=== PATIENT | female | born 1995 | race Caucasian/White ===

== ENCOUNTER 2019-04-12 21:58 | Emergency (ER) | payer OTHER ==
[~2019-04-12] VITALS: Ht 167.6 cm; Wt 72.6 kg
== END 2019-04-13 03:04 | disposition home or self-care (01) ==
LOC: ED 21:58
DX: N99.820 Postprocedural hemorrhage of a genitourinary system organ or structure following a genitourinary system procedure (principal); Z88.2 Allergy status to sulfonamides
CPT/HCPCS: 85025; 86850; 86900; 86901; 96361; 96374; 96375; 99284-25; J1170; J2405; J7030

== ENCOUNTER 2022-11-09 23:44 | Inpatient (IN) | payer BC ==
[2022-11-10 00:39] LABS: BASOPHILS 1.2 % (0-2); EOSINOPHILS 1.7 % (0-6); HEMATOCRIT 34.4 % (35.0-50.0); HEMOGLOBIN 11.6 g/dL (12.0-18.0); MCHC 33.6 g/dl (30-36); MCV 89.3 fl (81-99); NEUTROPHILS 60.1 % (39-80); PLATELET COUNT 151 K/uL (140-440); RBC 3.85 M/ul (4.3-5.7); RDW 12.7 (10.5-15.0)
[2022-11-10 00:51] LABS: CREATININE, RANDOM URINE 48.55 mg/dL (NOT ESTABLISHED)
[2022-11-10 00:53] LABS: PROTEIN/CREATININE RATIO 5.74 mg/mg (0.010-0.107)
[2022-11-10 00:58] LABS: ALBUMIN/GLOBULIN RATIO 0.56 (1.1-2.4); ANION GAP 14.9 (7-21); BILIRUBIN, TOTAL 0.2 ng/dL (0.2-1.0); BUN/CREATININE RATIO 23.18 (6.0-28.6); CALCIUM 9.2 mg/dL (8.5-10.1); CREATININE, SERUM 0.69 mg/dL (0.55-1.02); POTASSIUM 3.9 mmol/L (3.5-5.1); PROTEIN, TOTAL 5.6 g/dL (6.4-8.2)
[2022-11-10 03:26] LABS: EOSINOPHILS 1.6 % (0-6); HEMATOCRIT 35.3 % (35.0-50.0); HEMOGLOBIN 11.7 g/dL (12.0-18.0); LYMPHOCYTES 32.1 % (24-44); MCH 29.7 (27-36); MCHC 33.2 g/dl (30-36); MCV 89.3 fl (81-99); MONOCYTES 7.6 % (0-12); NEUTROPHILS 57.7 % (39-80); PLATELET COUNT 194 K/uL (140-440); RBC 3.95 M/ul (4.3-5.7); RDW 13.2 (10.5-15.0)
[2022-11-10 03:28] VITALS: BP 149/100
[2022-11-10 03:57] LABS: ABO A; ANTIBODY SCREEN NEGATIVE; RH POSITIVE
[2022-11-10 04:00] LABS: INFLUENZA B NAA NEGATIVE (NEGATIVE); RESPIRATORY SYNCYTIAL VIR NAA NEGATIVE (NEGATIVE)
== END 2022-11-10 04:51 | disposition short-term general hospital (02) | DRG 833 ==
LOC: FBCO → FBC 11-10 02:29
PROVIDERS: ADMIT Obstetrics & Gynecology; ATTEND Obstetrics & Gynecology
DX: O14.10 Severe pre-eclampsia, unspecified trimester (principal); Z3A.34 34 weeks gestation of pregnancy; Z88.2 Allergy status to sulfonamides; Z20.822 Contact with and (suspected) exposure to COVID-19; O35.DXX0 Maternal care for other (suspected) fetal abnormality and damage, fetal gastrointestinal anomalies, not applicable or unspecified
CPT/HCPCS: 36415; 59025; 80053; 82565; 82570; 83615; 84156; 84550; 85025; 85027; 86850; 86900; 86901; 87502; 96374; C9803; G0463; J0702; J3475; J7121; U0002

== ENCOUNTER 2024-06-07 21:38 | Inpatient (IN) | payer BC ==
[~2024-06-07] VITALS: Ht 166.4 cm; Wt 106.6 kg
--- NOTE | ~2024-06-07 | OR ---
[facility] [address] [place], [place] [address] Draft DATE OF OPERATION: 06/08/2024 SURGEON: Neville Frederick DO PREOPERATIVE DIAGNOSES: 1. Intrauterine at 37 weeks 5 days gestation. 2. Gestational hypertension. 3. History of prior section. 4. History of prior severe preeclampsia with severe features. POSTOPERATIVE DIAGNOSES: 1. Intrauterine at 37 weeks 5 days gestation. 2. Gestational hypertension. 3. History of prior section. 4. History of prior severe preeclampsia with severe features. 5. Pelvic adhesions. PROCEDURES PERFORMED: 1. Repeat low transverse section. 2. Lysis of adhesions. ANESTHESIA: Spinal with postoperative TAP blocks. BLOOD LOSS: 425 mL. COMPLICATIONS: None. DRAINS: Montoya to gravity. FINDINGS: Delivery of viable female , 7 pounds 8 ounces with Apgars of 9 and 9. Clear amniotic fluid. No nuchal. Dense adhesions of the peritoneum to the anterior surface of the uterus as well as omental adhesions to the peritoneum. Lysis of adhesions was successful with no residual adhesions at the end of the case. INDICATIONS: PATIENT NAME: KEYA STOUT OPERATIVE REPORT DATE OF : [birth year] REPORT #: [id number] PHYSICIAN: NEVILLE FREDERICK) PCP: TITA MOREL PAC REPORT IS CONFIDENTIAL AND NOT TO BE RELEASED WITHOUT AUTHORIZATION [facility] [address] [facility] [place], [place] [address] Draft Ms. Moore is a very pleasant 29-year-old G2, P0-1-0-1 with IUP at 37 weeks 5 days gestation who presents with gestational hypertension. She had severe preeclampsia with primary at 34 weeks with her first and we have been watching her blood pressures very closely. Two episodes of new onset elevated blood pressures noted in the last week and decision was made to proceed with delivery per ACOG guidelines. Risks, benefits, and alternatives were discussed in detail with the patient. The patient understands and wished to proceed with the procedure. DESCRIPTION OF PROCEDURE: The patient was taken the OR. A time-out was performed to confirm correct patient, correct procedure. Spinal anesthesia was adequately established. The patient was prepped and draped in the supine position with a bump under the right hip. Montoya catheter was inserted. Once the patient was prepped and draped then neuraxial anesthesia was noted to be adequate. A Pfannenstiel skin incision was made through the prior scar and carried down to the fascia. The fascia was nicked in the midline and fascial incision was extended bilaterally using curved Elias scissors. Fascia was grasped with Don's, elevated, and the underlying rectus dissected off bluntly and sharply. The rectus was divided bluntly in the midline and the peritoneum was entered bluntly. Dense peritoneal adhesions to the anterior surface of the uterus were identified. Careful dissection of the rectus was then performed in order to facilitate better visualization of the peritoneal/uterine adhesions. Once good visualization was assured, the peritoneal adhesions were taken down bluntly and sharply with Metzenbaum scissors, freeing the peritoneal surface from the uterus. At this point, an Frank self retractor was placed. Lower uterine segment was identified and hysterotomy performed using a surgical scalpel. Clear amniotic fluid was noted. Hysterotomy was extended bilaterally using blunt dissection. The was then delivered with the assistance of fundal pressure in the LOT position with no nuchal cord. was vigorous and cried. Delayed cord clamping x2 minutes was observed. Cord was doubly clamped and cut. The handed to the waiting pediatric team for further care. Cord blood was obtained for routine analysis. The placenta was expressed, intact with a centrally inserted three-vessel cord. Pitocin was administered per protocol and bleeding was minimal. The uterine cavity was cleared of any remaining products of conception or clot and the hysterotomy was repaired in two layers of 0 Monocryl. The first being a running locked layer with the second layer being an imbricating suture in the vertical manner. Small amount of oozing was noted just left of the midline and this made hemostatic with a figure of eight. The pelvis was irrigated and found to be hemostatic. Normal uterus, tubes, and ovaries were appreciated. Omental adhesion was noted to the peritoneum and this was divided and ligated with excellent hemostasis appreciated. The peritoneum was then reapproximated using 2-0 Vicryl in a running nonlocked manner. Rectus was made hemostatic with judicious use of Bovie electrocautery and the rectus was loosely plicated in the midline using three interrupted sutures of 0 Vicryl. Fascia was reapproximated using 0 Vicryl PATIENT NAME: KEYA STOUT OPERATIVE REPORT DATE OF : [birth year] REPORT #: [id number] PHYSICIAN: NEVILLE FREDERICK) PCP: TITA MOREL PAC REPORT IS CONFIDENTIAL AND NOT TO BE RELEASED WITHOUT AUTHORIZATION [address] [address] Draft in a running nonlocked manner. Subcu was made hemostatic with judicious use of Bovie electrocautery and was reapproximated using 3-0 Vicryl in a running nonlocked manner. Skin was reapproximated using surgical alex. The uterus was Crede'd for scant amount of blood. The patient remained in the OR for postoperative TAP block per Anesthesia. Sponge, needle and instrument count were correct x2 at the end of procedure. DO JOSE ANTONIO Wilson/MCKAY /[id number] Copies: ~ PATIENT NAME: KEYA STOUT OPERATIVE REPORT DATE OF : [birth year] REPORT #: [id number] PHYSICIAN: NEVILLE FREDERICK DO (JD) PCP: TITA MOREL PAC REPORT IS CONFIDENTIAL AND NOT TO BE RELEASED WITHOUT AUTHORIZATION
[2024-06-07] MEDS ORDERED: SOD+POT BICARB/CITRIC ACID 2 EA TABLET.EFF PO ONE (23:00)
[2024-06-07] MEDS ORDERED: LACTATED RINGER'S 1,000 ML IV PRN (23:00)
[2024-06-07 23:20] LABS: HEMATOCRIT 33.5 % (35.0-50.0); HEMOGLOBIN 11.7 g/dL (12.0-18.0); MCH 29.2 (27-36); MCHC 34.9 g/dl (30-36); MCV 83.5 fl (81-99); RBC 4.02 M/ul (4.3-5.7); RDW 13.2 (10.5-15.0)
[2024-06-07 23:21] LABS: AMPHETAMINES, URINE NEGATIVE (NEGATIVE); BARBITURATES, URINE NEGATIVE (NEGATIVE); BENZODIAZEPINE, URINE NEGATIVE (NEGATIVE); BUPRENORPHINE, URINE NEGATIVE (NEGATIVE); CANNABINOID, URINE NEGATIVE (NEGATIVE); COCAINE, URINE NEGATIVE (NEGATIVE); CREATININE, RANDOM URINE 193.61 mg/dL (NOT ESTABLISHED); ECSTASY, URINE NEGATIVE (NEGATIVE); FENTANYL, URINE NEGATIVE (NEGATIVE); METHADONE, URINE NEGATIVE (NEGATIVE); OPIATES, URINE NEGATIVE (NEGATIVE); OXYCODONE, URINE NEGATIVE (NEGATIVE); PHENCYCLIDINE, URINE NEGATIVE (NEGATIVE); PROTEIN/CREATININE RATIO 0.25 mg/mg (0.010-0.107)
[2024-06-07] MEDS ORDERED: CALCIUM CARBONATE 500 MG CHEW PO PRN (23:30)
[2024-06-07 23:37] LABS: ALBUMIN 2.5 g/dL (3.4-5.0); ALBUMIN/GLOBULIN RATIO 0.63 (1.1-2.4); ANION GAP 16.1 (7-21); BILIRUBIN, TOTAL 0.3 mg/dL (0.2-1.0); CALCIUM 8.5 mg/dL (8.5-10.1); CREATININE, SERUM 0.8 mg/dL (0.55-1.02); POTASSIUM 4.1 mmol/L (3.5-5.1); PROTEIN, TOTAL 6.5 g/dL (6.4-8.2)
[2024-06-07 23:44] VITALS: BP 134/76
[2024-06-07 23:56] LABS: ABO A; ANTIBODY SCREEN NEGATIVE; RH POSITIVE
[2024-06-08] MEDS ORDERED: SERTRALINE HCL100 MG PO (00:13)
[2024-06-08] MEDS ORDERED: LACTATED RINGER'S 1,000 ML IV SCH ×2 (05:00→09:25)
[2024-06-08] MEDS ORDERED: SOD+POT BICARB/CITRIC ACID 2 EA TABLET.EFF PO ONE (07:00)
[2024-06-08] MEDS ORDERED: CEFAZOLIN SODIUM 2 GM/20 ML SYR IV SCH (07:00)
[2024-06-08] MEDS ORDERED: OXYTOCIN 10 UNITS/ML VIAL ONE (07:07)
[2024-06-08] MEDS ORDERED: ondansetron HCL 4 MG/2 ML VIAL ONE (07:07)
[2024-06-08] MEDS ORDERED: DEXAMETHASONE SOD PHOS 4 MG/ML VIAL ONE ×2 (07:07→07:17)
[2024-06-08] MEDS ORDERED: PHENYLEPHRINE HCL 10 MG/ML VIAL ONE (07:07)
[2024-06-08] MEDS ORDERED: KETOROLAC TROMETHAMINE 30 MG/ML VIAL ONE (07:07)
[2024-06-08] MEDS ORDERED: ePHEDrine sulfate 50 MG/ML AMP ONE (07:08)
[2024-06-08] MEDS ORDERED: SODIUM CHLORIDE 0.9% 80 ML IV ONE (07:08)
[2024-06-08] MEDS ORDERED: LIDOCAINE HCL 2% 5 ML SDV ONE (07:10)
[2024-06-08] MEDS ORDERED: BUPIVACAINE 0.75% IN DEXTROSE 2 ML AMP ONE (07:10)
[2024-06-08] MEDS ORDERED: fentaNYL citrate 100 MCG/2 ML VIAL ONE (07:10)
[2024-06-08] MEDS ORDERED: dexmedeTOMIDine HCl 200 MCG/2 ML VIAL ONE (07:17)
[2024-06-08] MEDS ORDERED: Ropivacaine HCl 0.5% 30 ML VIAL ONE (07:17)
[2024-06-08] MEDS ORDERED: NALOXONE HCL 0.4 MG SYR IV PRN ×2 (07:45→10:00)
[2024-06-08] MEDS ORDERED: ondansetron HCL 4 MG/2 ML VIAL IV PRN ×3 (07:45→10:00)
[2024-06-08] MEDS ORDERED: IBLOOD GLUCOSE TEST STRIP 1 EA TEST VI PRN (07:45)
[2024-06-08] MEDS ORDERED: fentaNYL citrate 50 MCG/ML SDV IV PRN (07:45)
[2024-06-08] MEDS ORDERED: diphenhydrAMINE HCL 50 MG/ML VIAL IV PRN ×2 (07:45→10:00)
[2024-06-08] MEDS ORDERED: OXYTOCIN/0.9 % SODIUM CHLORIDE 500 ML IV SCH (09:30)
[2024-06-08] MEDS ORDERED: HYDROCODONE/ACETA 5/325 TAB PO PRN (09:30)
[2024-06-08] MEDS ORDERED: PROMETHAZINE HCL 25 MG SUPP PR PRN (09:30)
[2024-06-08] MEDS ORDERED: METOCLOPRAMIDE HCL 10 MG/2 ML SDV IV PRN (09:30)
[2024-06-08] MEDS ORDERED: PROCHLORPERAZINE EDISYLATE 10 MG/2 ML VIAL IV PRN (09:30)
[2024-06-08] MEDS ORDERED: PROMETHAZINE HCL 25 MG TAB PO PRN (09:30)
[2024-06-08] MEDS ORDERED: bisacodyL 10 MG SUPP PR PRN (09:30)
[2024-06-08] MEDS ORDERED: OXYCODONE/APAP 5/325 TAB PO PRN (09:30)
[2024-06-08] MEDS ORDERED: KETOROLAC TROMETHAMINE 30 MG/ML VIAL IV PRN (10:00)
[2024-06-08] MEDS ORDERED: MORPHINE SULFATE 4 MG/ML VIAL IV PRN (10:00)
[2024-06-08] MEDS ORDERED: HYDROmorphone HCL 1 MG/ML SYR IV PRN (10:00)
--- NOTE | 2024-06-08 10:21 | NUR ---
06/08/24 1021 Corinne De Leon 0917- FUNDAL CHECK DONE IN THE OR. MINIMAL BLEEDING AFTER RECIEVING THE TAP BLOCKS. 0920- PT ARRIVES TO ROOM 104. BREATHING IS EVEN AND UNLABORED. PT DENIES PAIN AND NAUSEA. ALL MONITORS PUT IN PLACE. VSS. FUNDAL CHECK DONE, BLOOD CLOT NOTED AND SHOWN TO NOEMI GEORGES. LR IS INFUSING IN HER L ARM WITH PITOCIN. VSS. SPINAL CHECK DONE AND IS SITTING ABOVE THE NIPPLE LINE AT T3. DORSEY CATH IN PLACE AND DRAINING YELLOW CLEAR URINE. 0930- PT HOB INCREASED SLIGHTLY. BABY TO CHEST AND OFF AND ON. PT CONTINUES TO DENY PAIN AND NAUSEA. PT REPORTS FEELING "TINGLES" IN HER TOES BUT IS UNABLE TO MOVE HER BLE. VSS. FUNDAL CHECK COMPLETED. PT SHOWS NO SIGNS OF APPARENT DISTRESS. PT IS DROWSY BUT REACTIVE TO VERBAL STIMULI, CLOSING EYES OFF AND ON. 0954- PT BLOOD PRESSURES HAVE DECREASED TO UPPER 90S. PT REPORTS FEELING "HEAVY" EVERYWHERE. FAM FRIEND CALLED AND VERBAL ORDER FOR A 500 ML BOLUS OF LR RECIEVED. THAT IS PREPARED AND HOOKED UP TO PT ON STRAIGHT TUBING AND A PRESSURE BAG. PT DROWSY AND CLOSING EYES OFF AND ON. PT IS AT THE BEDSIDE. 1000- BLOOD PRESSURE INCREASED TO LOW 100S. BEDSIDE REPORT GIVEN TO NOEMI GEORGES. PT IS RESTING. BABY IS WITH [employer] SERVICES SPECIALIST. PT AT BEDSIDE. FUNDAL CHECK SHOWS MIDLINE AND JUST BELOW THE UMBILICUS. PT DENIES QUESTIONS OR CONCERNS. CARE TURNED OVER AT THIS TIME.
[2024-06-08 10:23] VITALS: BP 99/58
[2024-06-08] MEDS ORDERED: SIMETHICONE 80 MG CHEW PO SCH (11:00)
[2024-06-08] MEDS ORDERED: ENOXAPARIN SODIUM 40 MG/0.4 ML SYR SUB-Q SCH (12:00)
[2024-06-08] MEDS ORDERED: KETOROLAC TROMETHAMINE 30 MG/ML VIAL IV SCH (14:00)
[2024-06-08] MEDS ORDERED: SENNOSIDES/DOCUSATE 1 EA TAB PO SCH (21:00)
[2024-06-09] MEDS ORDERED: IBUPROFEN 600 MG TAB PO SCH (02:00)
[2024-06-09 06:19] LABS: HEMATOCRIT 28.1 % (35.0-50.0); HEMOGLOBIN 9.4 g/dL (12.0-18.0); MCH 28.3 (27-36); MCHC 33.5 g/dl (30-36); MCV 84.7 fl (81-99); RBC 3.32 M/ul (4.3-5.7); RDW 13.2 (10.5-15.0)
--- NOTE | 2024-06-09 07:38 | PR ---
[facility] [address] [facility] [place] [facility] [place], [place] [address] Signed PP Progress Notes Datetime Report Generated by CPN: 06/09/2024 07:38 SUBJECTIVE: [id number] Pain: Within Normal Limits Flatus: Yes Vital Signs: [id number] Vital Signs: Reviewed; Within Normal Limits Cardiovascular: Normal Respiratory: Normal Abdomen/Uterus: Normal Lochia: Normal Vulva/Perineum: Not Done Breasts: Not Done CVA Tenderness: Not Done Extremities: Normal Progress: Normal Exam Comments: Fundus firm U-2 nontender. Resting with baby on chest; deferred incision check IMPRESSION/PLAN/PROCEDURES: [id number] Impression: Normal Progression Plan: Continue Present Management Progress Notes: Pt seen and examined. Doing well. Ambulating, voiding, and tolerating full diet. Pain and lochia minimal. . Normotensive. Hgb 9.2. No concerns. Continue routine care. Signing Physician: Neville Frederick DO Copies: ~ *Electronically Signed* 06/09/24 0738 NEVILLE FREDERICK (DEION) DO PATIENT NAME: ALY STOUTKENZIE CIPRIANO PROGRESS NOTE DATE OF : [birth year] PHYSICIAN: NEVILLE FREDERICK) DO RPT #: [id number] REPORT IS CONFIDENTIAL AND NOT TO BE RELEASED WITHOUT AUTHORIZATION
--- NOTE | 2024-06-10 12:15 | PR ---
[facility] [address] [place], [place] [address] Signed PP Progress Notes Datetime Report Generated by CPN: 06/10/2024 12:15 SUBJECTIVE: [id number] Pain: Within Normal Limits Nausea/Vomiting: Denies Flatus: Yes Bowel Movement: No Vital Signs: [id number] Vital Signs: Reviewed Notable Details: slightly elevated diastolic Cardiovascular: Normal Respiratory: Normal Abdomen/Uterus: Normal Lochia: Normal Vulva/Perineum: Not Done Breasts: Not Done CVA Tenderness: Normal Extremities: Normal Incision: Normal Progress: Normal Exam Comments: Fundus firm U-2 nontender. Incision clean /dry intact. [place] in place IMPRESSION/PLAN/PROCEDURES: [id number] Impression: Normal Progression Plan: Discharge Progress Notes: Pt seen and examined. Doing well. Ambulating, voiding, and tolerating full diet.Pain and lochia minimal. well. No fevers chills or other concerns. No KNAPP, RUQ pain, or visual changes. Desires d/c home. Reviewed d/c instructions / medications. All questions answered. F/U on FBC in 2 days for staple removal and BP check. Undecided on plans of pp contraception. Signing Physician: Neville Frederick DO Copies: ~ *Electronically Signed* 06/10/24 2403 NEVILLE FREDERICK (DEION) DO PATIENT NAME: KEYA STOUT PROGRESS NOTE DATE OF : [birth year] PHYSICIAN: NEVILLE FREDERICK (JD) DO RPT #: [id number] REPORT IS CONFIDENTIAL AND NOT TO BE RELEASED WITHOUT AUTHORIZATION
== END 2024-06-10 13:25 | disposition home or self-care (01) | DRG 788 ==
LOC: FBCO 21:38 → FBC 22:25
PROVIDERS: ADMIT Obstetrics & Gynecology; ATTEND Obstetrics & Gynecology
PROC: 0DNW0ZZ Release Peritoneum, Open Approach (ICD-10-PCS; 2024-06-08)
PROC: 4A1HXCZ Monitoring of Products of Conception, Cardiac Rate, External Approach (ICD-10-PCS; 2024-06-08)
PROC: 10D00Z1 Extraction of Products of Conception, Low, Open Approach (ICD-10-PCS; principal; 2024-06-08 07:14)
DX: O13.4 Gestational [pregnancy-induced] hypertension without significant proteinuria, complicating childbirth (principal); O34.211 Maternal care for low transverse scar from previous cesarean delivery; Z3A.37 37 weeks gestation of pregnancy; Z37.0 Single live birth; O99.892 Other specified diseases and conditions complicating childbirth; N73.6 Female pelvic peritoneal adhesions (postinfective); Z88.2 Allergy status to sulfonamides; O99.344 Other mental disorders complicating childbirth; F41.9 Anxiety disorder, unspecified; Z79.82 Long term (current) use of aspirin
CPT/HCPCS: 36415; 76942; 80053; 80307; 82565; 82570; 83615; 84156; 84550; 85027; 86850; 86900; 86901; A9270; J0690; J1100; J1650; J1885; J2003; J2371; J2405; J2590; J2795; J3010; J7121